=== PATIENT | male | born 2000 ===

== ENCOUNTER 2023-04-12 00:23 | Emergency (ER) | payer SELFPAY ==
[2023-04-12 00:25] VITALS: BP 170/82; PULSE 103; RESP 18; TEMP 36.1; O2SAT 100
--- NOTE | 2023-04-12 02:12 | PC.NURSE ---
No answer when called x 2. Not seen in waiting room.
== END 2023-04-12 02:12 | disposition left against medical advice (07) ==
DX: R20.0 Anesthesia of skin (principal)
CPT/HCPCS: 99199